=== PATIENT | female | born 1970 | race Caucasian/White ===

== ENCOUNTER 2024-05-13 08:09 | Outpatient (CLI) | payer BC, OTHER, SELFPAY ==
--- NOTE | ~2024-05-13 | MR_ITS ---
MR cervical spine wo con Ordering provider: Deborah Orosco, JENNY History: 53 years Female with . neck pain, left shoulder pain, cervical radiculopathy . Comparison: None. Technique: MRI cervical spine without contrast. FINDINGS: CERVICAL SPINAL CORD/CRANIAL CERVICAL JUNCTION: Normal in signal and caliber. Postoperative changes a t the level of C5-C6. CERVICAL VERTEBRAL BODIES: Normal height and alignment. Normal marrow signal. DISK SPACES: Normal. Multilevel facet joint disease. C2-C3: No stenosis. Slight narrowing of the left intervertebral foramen. Left facet joint disease. C3-C4: No stenosis. C4-C5: No stenosis. C5-C6: No stenosis. C6-C7: No stenosis. C7-T1: No stenosis. Mild diffuse disc bulge. Slight narrowing of the foramina. VISUALIZED PARASPINOUS SOFT TISSUES: Normal. IMPRESSION: 1. Postoperative changes at the level of C5-C6. 2. No acute osseous abnormalities. 3. No significant spinal canal stenosis. 4. Slight narrowing of the left foramina at the level of C2-C3. 5. Mild diffuse disc bulge at the level of C7-T1 with slight narrowing of the abdomen. Reviewed, dictated and finalized at location A.
== END 2024-05-13 08:10 | disposition home or self-care (01) ==
LOC: GOSHIMG 08:11
PROVIDERS: PCP Physician Assistant; Visit Provider Physician Assistant
DX: M25.512 Pain in left shoulder (principal); M54.12 Radiculopathy, cervical region; M50.20 Other cervical disc displacement, unspecified cervical region; Z98.1 Arthrodesis status
CPT/HCPCS: 72141